=== PATIENT | female | born 1985 ===

== ENCOUNTER 2017-03-07 11:27 | Emergency (ER) | payer MEDICAID ==
[2017-03-07 11:59] VITALS: RESP 18; O2SAT 100
--- NOTE | 2017-03-07 13:26 | C.PDOC ---
History Of Present Illness 31 y/o female presents to emergency department with complaint of abdominal pain for 2 weeks, associated with nausea and vomiting. Patient reports pain worsens after eating meals. She states pain is worst in bilateral upper abdominal areas. Denies diarrhea, fever, chills, urinary symptoms, hematemesis, or other associated symptoms. Patient notes history of "kidney infection" 4 months ago. Also reports past history of . Time Seen by Provider: 03/07/17 12:37 Chief Complaint (Nursing): Abdominal Pain History Per: Patient History/Exam Limitations: no limitations Onset/Duration Of Symptoms: Days Current Symptoms Are (Timing): Still Present Location Of Pain/Discomfort: RUQ, LUQ Radiation Of Pain To:: None Quality Of Discomfort: "Pain" Associated Symptoms: Nausea, Vomiting. denies: Fever, Chills, Diarrhea, Urinary Symptoms Recent travel outside of the [place]: No Abnormal Vaginal Bleeding: No Past Medical History Reviewed: Historical Data, Nursing Documentation, Vital Signs Vital Signs: Last Vital Signs Temp 98.8 F 03/07/17 17:56 Pulse 64 03/07/17 17:56 Resp 18 03/07/17 17:56 BP 110/77 03/07/17 17:56 Pulse Ox 100 03/07/17 17:58 - Medical History PMH: HTN Family History: States: Unknown Family Hx - Social History Hx Alcohol Use: No Hx Substance Use: No - Immunization History Hx Tetanus Toxoid Vaccination: Yes Hx Influenza Vaccination: Yes Hx Pneumococcal Vaccination: No Review Of Systems Except As Marked, All Systems Reviewed And Found Negative. Constitutional: Negative for: Fever, Chills Cardiovascular: Negative for: Chest Pain Respiratory: Negative for: Cough, Shortness of Breath, Wheezing Gastrointestinal: Positive for: Nausea, Vomiting, Abdominal Pain. Negative for : Diarrhea, Hematemesis Genitourinary: Negative for: Dysuria, Hematuria Skin: Negative for: Rash Physical Exam - Physical Exam Appears: Non-toxic, No Acute Distress Skin: Normal Color, Warm, Dry, No Rash Head: Atraumatic, Normacephalic Eye(s): bilateral: Normal Inspection, PERRL, EOMI Oral Mucosa: Moist Throat: No Erythema, No Exudate Neck: Normal ROM, Supple Chest: Symmetrical Cardiovascular: Rhythm Regular, No Friction Rub, No Murmur Respiratory: Normal Breath Sounds, No Accessory Muscle Use, No Rales, No Rhonchi , No Wheezing Gastrointestinal/Abdominal: Bowel Sounds (normal), Soft, Tenderness (mild, inconsistent left sided tenderness), No Guarding, No Rebound Back: Normal Inspection, No CVA Tenderness Extremity: Normal ROM, Capillary Refill (< 2 sec. ) Neurological/Psych: Oriented x3, Normal Speech, Normal Cognition, Normal Motor, Normal Sensation Gait: Steady ED Course And Treatment - Laboratory Results Result Diagrams: 03/07/17 13:48 03/07/17 13:48 O2 Sat by Pulse Oximetry: 100 (RA) Pulse Ox Interpretation: Normal - CT Scan/US CT Abdomen/Pelvis Other Rad Studies (CT/US): Read By Radiologist, Radiology Report Reviewed CT/US Interpretation: FINDINGS: LOWER THORAX: No visible consolidation, pleural effusion, or pneumothorax. LIVER: Unremarkable. GALLBLADDER AND BILE DUCTS: Unremarkable. PANCREAS: Unremarkable. SPLEEN: Unremarkable. ADRENALS: Unremarkable. KIDNEYS AND URETERS: Region of diminished enhancement identified involving the left upper pole kidney and to a lesser extent left lower pole which may reflect pyelonephritis. Differential considerations include sequela of vascular insults/infarct or infiltrating process. No hydronephrosis or obstructing calculus identified. VASCULATURE: No aortic aneurysm. BOWEL: Stomach is nondistended. Lack of oral contrast limits evaluation for bowel pathology. Bowel loops appear within normal limits of caliber without evidence of obstruction. APPENDIX: The appendix appears within normal limits of caliber. No secondary signs of acute appendicitis. PERITONEUM: Small fluid in the right pericolic gutter. No definite free air. LYMPH NODES: No bulky adenopathy identified. BLADDER: Unremarkable. REPRODUCTIVE: Uterus is present. 1.6 cm probable right ovarian cyst. BONES: No acute osseous abnormality is detected. OTHER FINDINGS: 4 mm fat containing umbilical hernia. IMPRESSION: Region of diminished enhancement identified involving the left upper pole kidney and to a lesser extent left lower pole which may reflect pyelonephritis. Differential considerations include sequela of vascular insults/infarct or infiltrating process. Correlate clinically. 1.6 cm probable right ovarian cyst. Small fluid in the right pericolic gutter. Additional incidental findings as above. Progress Note: Labs, CT A/P, urinalysis ordered. Treated with Zofran, Pepcid, Toradol, Morphine, and IVFs. On reassessment, patient is resting comfortably, and is in no acute distress. Patient reports improvement of pain. Patient instructed to follow up with clinic/PMD within 1-2 days. Medical Decision Making Medical Decision Making: CT scan shows possible pyelo vs sequela of vascular infarct. The patient has no fever, dysuria, WBC count on UA, or any symptoms of pyelo. On re-exam, the patient reports improvement of symptoms. Abdomen is soft, non-tender and the patient is tolerating PO well. Lungs are CTA and heart is RRR. Patient is ambulatory in the ED with steady gait. Follow up with the medical doctor/clinic within 1-2 days without fail. Return if worsened. Disposition - Disposition Referrals: [facility] [Outside] Disposition: HOME/ ROUTINE Disposition Time: 17:35 Condition: GOOD Additional Instructions: Follow up with the medical doctor/clinic within 1-2 days without fail. Return if worsened. Prescriptions: Ondansetron ODT [Zofran ODT] 1 odt PO BID PRN #10 odt PRN Reason: Nausea/Vomiting Polyethylene Glycol 3350 [Miralax] 17 gm PO DAILY PRN #100 ml PRN Reason: Constipation Instructions: Acute Abdominal Pain (ED) Forms: [employer] ([place] Print Language: MALAWIAN - Clinical Impression Clinical Impression: Abdominal pain, Vomiting - PA / INSULATOR TECHNICIAN / Resident Statement MD/DO has reviewed & agrees with the documentation as recorded. - Scribe Statement The provider has reviewed the documentation as recorded by the [place] All medical record entries made by the Dorothy were at my direction and personally dictated by me. I have reviewed the chart and agree that the record accurately reflects my personal performance of the history, physical exam, medical decision making, and the department course for this patient. I have also personally directed, reviewed, and agree with the discharge instructions and disposition.
[2017-03-07] MEDS ORDERED: Sodium Chloride 0.9% 1,000 ML IV ONE (13:28)
[2017-03-07] MEDS ORDERED: Sodium Chloride 0.9% 1,000 ML ONE (13:39)
[2017-03-07 13:55] LABS: BASO # 0.1 K/uL (0.0-0.2); BASO % 0.7 % (0.0-2.0); EOS # 0.4 K/uL (0.0-0.7); EOS % 4.7 % (0.0-4.0); HEMATOCRIT 35.5 % (34.0-47.0); LYMPH # 2.6 K/uL (1.0-4.3); LYMPH % 31.7 % (20.0-40.0); MEAN CELL VOLUME 78.6 fL (81.0-99.0); MEAN CORPUSCULAR HEMOGLOBIN 25.9 pg (27.0-31.0); MEAN PLATELET VOLUME 9.6 fL (7.2-11.7); MONO # 0.5 K/uL (0.0-0.8); MONO % 5.6 % (0.0-10.0); NRBC % 0.1 % (0.0-2.0); RED CELL DISTRIBUTION WIDTH 16.5 % (11.5-14.5); WHITE BLOOD COUNT 8.1 K/uL (4.8-10.8)
[2017-03-07 14:04] LABS: CHLORIDE 103 mmol/L (98-107)
[2017-03-07 14:05] LABS: POTASSIUM 3.8 mmol/L (3.6-5.2); SODIUM 138 mmol/L (132-148)
[2017-03-07 14:06] LABS: RBC URINE < 1 /hpf (0-3); URINE BILIRUBIN NEGATIVE (NEGATIVE); URINE BLOOD NEGATIVE (NEGATIVE); URINE COLOR Yellow (YELLOW); URINE GLUCOSE (UA) NORMAL (Normal); URINE KETONE NEGATIVE (NEGATIVE); URINE LEUKOCYTE ESTERASE NEG Leu/uL (Negative); URINE PROTEIN NEGATIVE (NEGATIVE); URINE UROBILINOGEN NORMAL mg/dL (0.2-1.0); WBC URINE 1 /hpf (0-5)
[2017-03-07 14:07] LABS: ALB/GLOB RATIO 1.3 (1.0-2.1); AST/SGOT 24 U/L (14-36); BILIRUBIN,TOTAL 0.4 mg/dL (0.2-1.3); CARBON DIOXIDE 22 mmol/L (22-30); GFR AFRICAN-AMERICAN > 60; TOTAL PROTEIN 6.6 g/dL (6.3-8.3)
[2017-03-07 14:08] LABS: ALKALINE PHOSPHATASE 94 U/L (38-126); ALT/SGPT 34 U/L (9-52); BLOOD UREA NITROGEN 11 mg/dL (7-17); CALCIUM 8.6 mg/dl (8.6-10.4); GLUCOSE,RANDOM 77 mg/dL (65-105)
[2017-03-07] MEDS ORDERED: Iohexol 350mg/ml 100 ML ONE (16:02)
--- NOTE | 2017-03-07 16:58 | CT ---
PROCEDURE: CT Abdomen and Pelvis with contrast HISTORY: L sided abd pain, vomiting COMPARISON: None available. TECHNIQUE: Contrast dose: 100 mL Omnipaque Radiation dose: Total exam DLP = 670.79 mGy-cm. This CT exam was performed using one or more of the following dose reduction techniques: Automated exposure control, adjustment of the mA and/or kV according to patient size, and/or use of iterative reconstruction technique. FINDINGS: LOWER THORAX: No visible consolidation, pleural effusion, or pneumothorax. LIVER: Unremarkable. GALLBLADDER AND BILE DUCTS: Unremarkable. PANCREAS: Unremarkable. SPLEEN: Unremarkable. ADRENALS: Unremarkable. KIDNEYS AND URETERS: Region of diminished enhancement identified involving the left upper pole kidney and to a lesser extent left lower pole which may reflect pyelonephritis. Differential considerations include sequela of vascular insults/infarct or infiltrating process. No hydronephrosis or obstructing calculus identified. VASCULATURE: No aortic aneurysm. BOWEL: Stomach is nondistended. Lack of oral contrast limits evaluation for bowel pathology. Bowel loops appear within normal limits of caliber without evidence of obstruction. APPENDIX: The appendix appears within normal limits of caliber. No secondary signs of acute appendicitis. PERITONEUM: Small fluid in the right pericolic gutter. No definite free air. LYMPH NODES: No bulky adenopathy identified. BLADDER: Unremarkable. REPRODUCTIVE: Uterus is present. 1.6 cm probable right ovarian cyst. BONES: No acute osseous abnormality is detected. OTHER FINDINGS: 4 mm fat containing umbilical hernia. IMPRESSION: Region of diminished enhancement identified involving the left upper pole kidney and to a lesser extent left lower pole which may reflect pyelonephritis. Differential considerations include sequela of vascular insults/infarct or infiltrating process. Correlate clinically. 1.6 cm probable right ovarian cyst. Small fluid in the right pericolic gutter. Additional incidental findings as above.
[2017-03-07 17:57] VITALS: BP 110/77; PULSE 64; TEMP 98.8
== END 2017-03-07 17:57 | disposition home or self-care (01) ==
LOC: C.ER 11:27
DX: R10.11 Right upper quadrant pain (principal); R10.12 Left upper quadrant pain; R11.10 Vomiting, unspecified
CPT/HCPCS: 74177; 80053; 81001; 83690; 84703; 85025; 96361; 96374; 96375; 99285; J1885; J2270; J2405; J7040; Q9967